=== PATIENT | female | born 1985 | race African-American/Black ===

== ENCOUNTER 2024-07-15 11:33 | Emergency (ER) | payer MEDICAID ==
[~2024-07-15] VITALS: Ht 160 cm; Wt 70.0 kg
[2024-07-15 11:35] VITALS: O2SAT 97
[2024-07-15 11:50] VITALS: BP 123/80; PULSE 80; RESP 16; TEMP 36.8; O2SAT 100
[2024-07-15] MEDS ORDERED: CEPH500C2 MT (13:03)
[2024-07-15] MEDS ORDERED: IBUP-2029 MT (13:03)
[2024-07-15] MEDS ORDERED: SULF1TAB48 MT (13:03)
[2024-07-15] MEDS ORDERED: ACET-2708 MT (13:03)
[2024-07-15] MEDS: ACETAMINOPHEN 500MG TABLET PO ONE (13:07)
[2024-07-15] MEDS: IBUPROFEN 600MG TABLET PO ONE (13:07)
== END 2024-07-15 13:18 | disposition home or self-care (01) ==
LOC: ER 11:33
DX: L03.115 Cellulitis of right lower limb (principal); L02.416 Cutaneous abscess of left lower limb; Z90.49 Acquired absence of other specified parts of digestive tract
CPT/HCPCS: 99283